=== PATIENT | male | born 1985 | race Caucasian/White ===

== ENCOUNTER 2020-06-29 03:13 | Emergency (ER) | payer BC ==
[~2020-06-29] VITALS: Ht 165.1 cm; Wt 72.6 kg
--- NOTE | 2020-06-29 03:20 | NUR ---
ED Nurse Note: ambulated from home c/o nausea and dizziness x 1 day. reports suprapubic tenderness. changed into gown; attached to monitor. patient ao4 with no acute distress. vitals stable. all safety measures met.
[2020-06-29 03:30] VITALS: BP 133/84
--- NOTE | 2020-06-29 03:30 | NUR ---
ED Nurse Note: iv access established. blood and urine collected; sent down to lab.
[2020-06-29 03:53] LABS: APPEARANCE,URINE CLEAR; BASOPHILS % (AUTO) 1.5 % (0.0-2.0); BILIRUBIN, URINE NEGATIVE (NEGATIVE); COLOR,URINE PALE YELLOW; EOSINOPHILS % (AUTO) 1.3 % (0.0-3.0); GLUCOSE, URINE (UA) NEGATIVE (NEGATIVE); HEMATOCRIT 41.4 % (42.0-52.0); HEMOGLOBIN 14.6 G/DL (14.2-18.0); KETONES,URINE NEGATIVE (NEGATIVE); LEUKOCYTE ESTERASE ,URINE NEGATIVE (NEGATIVE); LYMPHOCYTES % (AUTO) 10.2 % (20.0-45.0); MEAN CORPUSCULAR VOLUME 91 FL (80-99); MONOCYTES % (AUTO) 8.8 % (1.0-10.0); NEUTROPHILS % (AUTO) 78.2 % (45.0-75.0); NITRITE,URINE NEGATIVE (NEGATIVE); PH,URINE 8 (4.5-8.0); PLATELET COUNT 218 K/UL (150-450); PROTEIN,URINE NEGATIVE (NEGATIVE); RED BLOOD COUNT 4.55 M/UL (4.70-6.10); RED CELL DISTRIBUTION WIDTH 11.6 % (11.6-14.8); UROBILINOGEN,URINE NORMAL MG/DL (0.0-1.0)
[2020-06-29 04:21] LABS: SODIUM 134 MMOL/L (136-145)
[2020-06-29 04:22] LABS: ANION GAP 7 mmol/L (5-15); BLOOD UREA NITROGEN 8 mg/dL (7-18); CALCIUM 9.2 MG/DL (8.5-10.1); CARBON DIOXIDE 28 MMOL/L (21-32); CHLORIDE 99 MMOL/L (98-107); CREATININE 0.9 MG/DL (0.55-1.30); POTASSIUM 3.5 MMOL/L (3.5-5.1)
[2020-06-29 04:26] LABS: ALANINE AMINOTRANSFERASE 27 U/L (12-78); ALBUMIN 4.6 G/DL (3.4-5.0); ALBUMIN/GLOBULIN RATIO 1.4 (1.0-2.7); ALKALINE PHOSPHATASE 53 U/L (46-116); ASPARTATE AMINO TRANSFERASE 25 U/L (15-37); BILIRUBIN,TOTAL 0.5 MG/DL (0.2-1.0)
[2020-06-29] MEDS ORDERED: ONDANSETRON ODT4 MG BC (04:43)
--- NOTE | 2020-06-29 04:47 | Emergency Room Report ---
History of Present Illness General Chief Complaint: Nausea Source: Patient Present Illness HPI 35M no PMHx c/o L suprapubic abdominal pain x 1 day. Also endorses nausea and non bloody vomiting x 1. Last BM was today and normal. Last PO intake was today. No changes in appetite. Denies hematuria, dysuria, flank pain, rash, CP, SOB, melena, hematochezie The patient's symptoms were gradual onset, severity was moderate, duration since 1 day. Quality: dull Past medical history: Denies Past surgical history: Denies Smoking: Denies Alcohol use: ++ 2 beers per day Drug use: Denies Review of systems: CONST: No fevers or chills, No night sweats PULMONARY: No productive cough, No shortness of breath CARDIAC: No chest pain, No palpitations GI: ++ vomiting, No diarrhea , No melena_or_BRBPR : No dysuria, No hematuria, No discharge NEURO: No new_focal_weakness_or_numbness, No confusion, No vision changes 14 point Review of Systems is otherwise negative except per HPI Physical Exam: GENERAL: Awake_alert_ nontoxic, no acute distress Spo2 97% on RA -normal EYES: Extraocular muscles are intact. Conjunctivae clear. Lids without swelling ENT: External nose and ear normal_in_appearance. Oropharynx clear. Head_atraumatic, Moist_oral_mucosa NECK: No JVD. No meningismus. No thyromegaly. Supple. Trachea midline RESP: Normal respiratory effort. Symmetric rise. No stridor. Clear_to_auscultation_No_rales_No_wheezes CARDIAC: Regular rate and regular rhytm. No_significant pedal edema. ABDOMEN: Soft. Nondistended. Nontender_No_rebound_or_guarding. No CVA TTP : penis without rash, testicles descended without tenderness or swelling, testicles with normal lie. Chaperoned with nurse at bedside. No inguinal hernia. MSK: Normal muscle tone, without rigidity. Extremities without asymmetric deformity or swelling. SKIN: Warm and dry. No visible cyanosis or pallor NEUROLOGIC: Alert, oriented x3. Motor_and_sensation_grossly_intact. No truncal ataxia. Gait_normal Psych: Normal mood and affect, normal judgment and insight - COORDINATION OF CARE Case was discussed with: Patient Any labs and imaging that were ordered were interpreted as part of the medical decision making: Medical Decision Making/Plan: Differential diagnosis includes appendicitis, diverticulitis, testicular torsion, kidney stone, small bowel obstruction, volvulus, AAA, pancreatitis, among others. Patient is well appearing with stable vital signs. Abdominal exam is non peritoneal with no guarding or rebound. Testicular exam is normal without any evidence of torsion. Labs/UA show no abnormalities. EKG shows no ischemia. CT abd shows no acute surgical pathology. +Fatty liver. +Constipation. No SBO or ileus. US shows no evidence of testicular torsion. +R hydrocele. The patient denies any bloody stool and has no pain out of proportion to exam, and no significant risk factors for mesenteric ischemia such as atrial fibrillation or severe PAD/PVD (peripheral arterial / vascular disease),thus definitive workup to rule out mesenteric ischemia was not pursued. No hernia seen on exam. The patients symptoms significantly improved, exam upon discharge revealed a benign abdomen without any surgical or peritoneal signs , and tolerating oral fluids. He was instructed to stop drinking alcohol or else his fatty liver may progress to cirrhosis. Recommend high fiber diet The patient appears stable for discharge with abdominal_recheck_in_24_hours, and understand to return to the ED immediately if symptoms change or worsen. Allergies: Coded Allergies: No Known Allergies (Unverified , 06/29/20) COVID-19 Screening Contact w/high risk pt: No Experienced COVID-19 symptoms?: Yes COVID-19 Testing performed [employer]: No Physical Exam Vital Signs Date Time Temp Pulse Resp B/P (MAP) Pulse Ox O2 Delivery O2 Flow Rate FiO2 06/29/20 03:16 98.1 77 18 133/84 (100) 97 Room Air Sp02 EP Interpretation: reviewed, normal Medical Decision Making Diagnostic Impression: Primary Impression: Nausea & vomiting Additional Impressions: Constipation Fatty liver Alcohol abuse Abdominal pain Right hydrocele Rhythm Strip Diag. Results ABISAI Bernardo 12-lead EKG (interpreted by me) Time: 402 Indication: Rhythm analysis Tracing visualized and Interpreted by me. Rhythm: Normal sinus rhythm Rate: 64 bpm QTc: 491 Morphology: No_significant_ST_elevations_or_depressions, No STEMI Impression: Normal_sinus_rhythm_without_significant_abnormality CT/MRI/US Diagnostic Results CT/MRI/US Diagnostic Results : Impression US SCROTUM R Hydrocele Reevaluation Time: 06:00 Last Vital Signs Date Time Temp Pulse Resp B/P (MAP) Pulse Ox O2 Delivery O2 Flow Rate FiO2 06/29/20 03:30 98.1 66 18 133/84 97 Room Air Status: improved Disposition: HOME, SELF-CARE Admit Decision Time: 06:00 Condition: Stable Scripts Naproxen* (NAPROXEN*) 500 Mg Tablet.dr 500 MG ORAL TWICE A DAY for 14 Days, #28 TAB Prov: Chani Wilder D.O. 06/29/20 Docusate Sodium (DULCOLAX STOOL SOFTENER) 100 Mg Capsule 100 MG PO DAILY for constipation for 5 Days, #5 CAP Prov: Chani Wilder D.O. 06/29/20 Ondansetron Odt* (ZOFRAN ODT*) 4 Mg Tab.rapdis 4 MG BC EVERY 8 HOURS, #10 TAB 0 Refills Prov: Chani Wilder D.O. 06/29/20 Referrals: [facility]. [facility] Patient Instructions: Constipation, Adult, [id number], Hydrocele, Adult, Nausea and Vomiting, Adult Additional Instructions: Instructions for patient/flight paramedic: Follow up with your physician in 1-2 days for repeat abdominal exam. Stop drinking alcohol. Eat more fiber. Follow-up with your doctor sooner if your condition requires a more timely clinical reevaluation. Return to the emergency department immediately if you feel that your condition is worsening or if you have any new or concerning symptoms. Review your discharge instructions and take any prescriptions given as instructed. [facility] PROVIDES FREE OR LOW-COST HEALTH SERVICES TO PEOPLE WHO CAN SHOW PROOF THAT THEY LIVE IN [facility]. TO FIND MORE CLINICS PARTNERED WITH [facility] TO PROVIDE SERVICE, PLEASE CALL . Chani Wilder D.O. Jun 29, 2020 04:46
--- NOTE | 2020-06-29 04:49 | Diagnostic Imaging Report ---
EXAM: CT Abdomen and Pelvis Without Intravenous Contrast CLINICAL HISTORY: ABD PAIN TECHNIQUE: Axial computed tomography images of the abdomen and pelvis without intravenous contrast. CTDI is 5.30 mGy and DLP is 284.40 mGy-cm. One or more of the following dose reduction techniques were used: automated exposure control, adjustment of the mA and/or kV according to patient size, use of iterative reconstruction technique. COMPARISON: No previous studies for comparison. FINDINGS: Lung bases: Evaluation of the lung apices rules minimal scarring or atelectasis within the lingular region. Heart: Visualized heart is grossly unremarkable. ABDOMEN: Liver: Diffuse fatty infiltration of the liver is noted. The liver and the spleen are normal in contour. Gallbladder and bile ducts: See below. Pancreas: See below. Spleen: See above. Adrenals: The adrenal glands, the head, body, tail of the pancreas, and the gallbladder are unremarkable. Kidneys and ureters: No renal calculus or hydronephrosis is noted. Stomach and bowel: Moderate quantity of stool throughout the colon. No evidence of bowel obstruction. No mucosal thickening. PELVIS: Appendix: The appendix is seen on coronal images 46 and 47 and is unremarkable. Bladder: The bladder is underdistended. No stones. Reproductive: The prostate gland is unremarkable. Small bilateral testicular hydroceles. ABDOMEN and PELVIS: Intraperitoneal space: Unremarkable. No free air. No significant fluid collection. Bones/joints: No spondylolysis or spondylolisthesis. Bilateral spondylolysis L5 vertebral body. Grade 1 anterolisthesis of L5 upon S1 vertebral body. No acute fracture. No dislocation. Soft tissues: Ischiorectal fat is clean. Vasculature: The abdominal aorta is normal in caliber. No abdominal aortic aneurysm. Lymph nodes: No pelvic or inguinal lymphadenopathy. Other findings: Elevation of the right hemidiaphragm. IMPRESSION: 1. Limited evaluation due to lack of oral and intravenous contrast per 2. Fatty infiltration of the liver. 3. The gallbladder is unremarkable. 4. No renal calculus or hydronephrosis. 5. Moderate quantity of stool throughout the colon. 6. No evidence of bowel obstruction. 7. The appendix is unremarkable. 8. Bilateral spondylolysis of the L5 vertebral body. 9. Minimal grade 1 anterolisthesis of L5 upon S1 vertebral body.
[2020-06-29] MEDS ORDERED: NAPROXEN500 M1 ORAL (05:00)
[2020-06-29] MEDS ORDERED: DULCOLAX STOOL100 M1 PO (05:00)
--- NOTE | 2020-06-29 05:00 | NUR ---
ED Nurse Note: assisted ermd with pelvic exam.
--- NOTE | 2020-06-29 05:33 | NUR ---
ED Nurse Note: us completed at bedside
[2020-06-29 05:36] VITALS: BP 131/81
--- NOTE | 2020-06-29 06:41 | Diagnostic Imaging Report ---
EXAM: US Scrotum CLINICAL HISTORY: PAIN TECHNIQUE: Real-time ultrasound of the scrotum with color Doppler and image documentation. COMPARISON: No previous studies. FINDINGS: Right testicle: The right testicle measures 4.3 x 2.4 x 3.3 cm. No intrinsic testicular abnormalities could Flow to both testicles noted. No torsion. Left testicle: Left testicle measures 4.3 x 2.3 x 3.4 centers. Epididymides: Left epididymal head is unremarkable. Scrotum: Very small right-sided hydrocele is noted surrounding the right epididymal head. IMPRESSION: 1. Very small right hydrocele surrounding the right epididymal head. 2. No intrinsic testicular abnormalities per 3. Flow is demonstrated to both testicles.
[2020-06-29 06:45] VITALS: BP 129/79
--- NOTE | 2020-06-29 06:45 | NUR ---
ER DISCHARGE NOTE: Patient is cleared to be discharged per ERMD, pt is aox4, on room air, with stable vital signs. pt was given dc and prescription instructions, pt was able to verbalize understanding, pt id band and iv site removed without complications. pt is able to ambulate with steady gait. pt took all belongings.
== END 2020-06-29 06:45 | disposition home or self-care (01) ==
LOC: EMR 03:38
DX: R11.2 Nausea with vomiting, unspecified (principal); R10.9 Unspecified abdominal pain; K76.0 Fatty (change of) liver, not elsewhere classified; K59.00 Constipation, unspecified; N43.3 Hydrocele, unspecified; F10.10 Alcohol abuse, uncomplicated
CPT/HCPCS: 36415; 74176; 76870; 80053; 81003; 83690; 84484; 85025; 85610; 85730; 93005; 96361; 96374; 99284; J2405; J7030